=== PATIENT | female | born 1945 | race Caucasian/White ===

== ENCOUNTER 2016-10-16 14:48 | Outpatient (CLI) | payer MEDICARE, BC ==
[2014-03-28 09:46] VITALS: O2SAT 96
== END 2016-10-16 14:49 | disposition home or self-care (01) | DRG 556 ==
LOC: CONVCARE 14:48
PROVIDERS: ATTEND Orthopaedic Surgery
DX: M79.644 Pain in right finger(s) (principal)
CPT/HCPCS: 73140

== ENCOUNTER 2016-10-16 23:11 | Emergency (ER) | payer MEDICARE, BC ==
[2016-10-16 23:40] VITALS: BP 178/71; PULSE 78; RESP 16; TEMP 98; O2SAT 99
[2016-10-16] MEDS ORDERED: LIDOCAINE HCL 1% MPF SOL ONE (23:54)
[2016-10-17] MEDS: LIDOCAINE HCL 1% MDV SOL SC ONE (00:07)
== END 2016-10-17 00:29 | disposition home or self-care (01) | DRG 552 ==
LOC: ED 23:11
DX: M54.5 Low back pain (principal)
CPT/HCPCS: 73140; 99282; J2001

== ENCOUNTER 2016-10-30 07:53 | Day surgery (SDC) | payer MEDICARE, BC ==
[2016-10-30] MEDS ORDERED: PROPOFOL 500 MG/50 ML EMU IV ONE (08:28)
[2016-10-30] MEDS ORDERED: ONDANSETRON HCL 4 MG/2 ML SOL ONE (08:28)
[2016-10-30] MEDS ORDERED: LIDOCAINE HCL 1% MPF SOL ONE (08:28)
[2016-10-30] MEDS ORDERED: FENTANYL 100MCG/2ML SOL ONE (08:28)
[2016-10-30] MEDS ORDERED: MIDAZOLAM 2 MG/2 ML SOL ONE (08:28)
[2016-10-30] MEDS ORDERED: LIDOCAINE HCL 2% MPF SOL ONE (09:48)
[2016-10-30] MEDS ORDERED: BUPIVACAINE HCL 0.5% MPF 10 ML SOL ONE (09:49)
[2016-10-30 11:53] VITALS: BP 126/84; PULSE 70; RESP 18; TEMP 97.2; O2SAT 93
== END 2016-10-30 12:50 | disposition home or self-care (01) | DRG 558 ==
LOC: SURG 07:53
PROVIDERS: ATTEND Orthopaedic Surgery
DX: M67.843 Other specified disorders of tendon, right hand (principal); M19.041 Primary osteoarthritis, right hand; M77.9 Enthesopathy, unspecified
CPT/HCPCS: J2250; J2405; J3010; J2001; J2704